=== PATIENT | female | born 1980 | race Caucasian/White ===

== ENCOUNTER 2019-05-21 17:33 | Emergency (ER) | payer OTHER ==
--- NOTE | 2019-05-21 17:38 | PDOC ---
History of Present Illness - General Chief Complaint: Vaginal Sxs Stated Complaint: YEAST INFECTION Time Seen by Provider: 05/21/19 17:37 History Source: Patient Exam Limitations: No Limitations - History of Present Illness Initial Comments: 05/21/19 17:37 Daksha Pat is a 39F with PMH hypothyroidism on Synthroid, NIDDM, presenting with vaginal discomfort. Since last Monday, has had vaginal discomfort and brown malordorous discharge, no bleeding or abdominal pain. Called OBGYN, says symptoms consistent with prior yeast infection, only PO medications tend to work. Made appt to see OBGYN but uncomfortable waiting until , came to ED. Denies burning with urination, but has urinary frequency. PMH NIDDM, has not been taking Metformin since January, has not checked BGM daily since then. Intentional 80lb weight loss since January. Denies fever, chills, chest pain, palpitations, SOB, abd pain, swelling. LMP ended 5 days ago, heavy periods, very regular. One new male sexual partner since December, initially used condoms but decreased use over time. Has had a tubal ligation, no concern for . No history of STDs, has been tested before, would like testing today. Has 3 chidden aged 18, 16, 11. Denies drugs, social alcohol, non-smoker. Past History - Past Medical History Allergies/Adverse Reactions: Allergies Allergy/AdvReac Type Severity Reaction Status Date / Time No Known Allergies Allergy Verified 05/21/19 17:35 Home Medications: Ambulatory Orders Levothyroxine [Synthroid] 100 mcg PO DAILY #15 tablet 04/15/15 Metformin HCl [Glucophage] 1,000 mg PO TID 05/21/19 Nitrofurantoin Macrocrystal [Macrodantin] 100 mg PO BID #14 capsule 05/21/19 Cancer: Yes (h/o cervical, none now) Diabetes: Yes Thyroid Disease: Yes (hypothyroid) - Surgical History Cardiac Surgery: Yes - Reproductive History Cervical CA: Yes (states doesnt have cancer now, had cryotherapy) Tubal Ligation: Yes - Immunization History Td Vaccination: No - Psycho Social/Smoking Cessation Hx Smoking Status: No Smoking History: Never smoked Number of Cigarettes Smoked Daily: 0 Hx Alcohol Use: No Drug/Substance Use Hx: No Substance Use Type: None Review of Systems - Review of Systems Able to Perform ROS?: Yes Constitutional: No: Symptoms Reported HEENTM: No: Symptoms Reported Respiratory: No: Symptoms reported Cardiac (ROS): No: Symptoms Reported ABD/GI: No: Symptoms Reported : Yes: Discharge, Frequency. No: Burning, Dysuria, Flank Pain, Hematuria, Incontinence Musculoskeletal: No: Symptoms Reported Integumentary: No: Symptoms Reported Neurological: No: Symptoms reported Endocrine: No: Symptoms Reported Hematologic/Lymphatic: No: Symptoms Reported All Other Systems: Reviewed and Negative *Physical Exam - Physical Exam General Appearance: Yes: Nourished, Appropriately Dressed. No: Apparent Distress HEENT: positive: EOMI, AVINASH, Normal Voice, Symmetrical, Pharynx Normal, Hearing Grossly Normal. negative: Scleral Icterus (R), Scleral Icterus (L), Pharyngeal Erythema, Tonsillar Exudate, Tonsillar Erythema Neck: positive: Trachea midline, Decreased range of motion. negative: Tender, Supple, Lymphadenopathy (R), Lymphadenopathy (L) Respiratory/Chest: positive: Lungs Clear, Normal Breath Sounds. negative: Chest Tender, Respiratory Distress, Accessory Muscle Use, Crackles, Rales, Rhonchi, Stridor, Wheezing Cardiovascular: positive: Regular Rhythm, Regular Rate. negative: Edema, Murmur Female Pelvic Exam: positive: normal external exam, cervical os closed, normal adnexa, discharge (physiological discharge, no evidence of cottage cheese or yeast, no blood). negative: CMT, lesions, Bartholin mass, vaginal bleeding Gastrointestinal/Abdominal: positive: Normal Bowel Sounds, Flat, Soft. negative : Tender, Organomegaly, Pulsatile Mass, Guarding, Rebound Musculoskeletal: positive: Normal Inspection. negative: CVA Tenderness Extremity: positive: Normal Capillary Refill, Normal Inspection, Normal Range of Motion. negative: Tender, Pelvis Stable Integumentary: positive: Normal Color, Dry, Warm Neurologic: positive: Alert, Normal Mood/Affect, Normal Response Medical Decision Making - Medical Decision Making 05/21/19 21:24 Daksha Pat is a 39F with PMH hypothyroidism on Synthroid, NIDDM, presenting with vaginal discomfort. On exam, patient noted to have no evidence of a yeast infection, no thick or brown discharge noted, only physiological clear white serous fluids with a normal-appearing os for a multiparous female and no CMT or external rashes concerning for GC infection. Patient does not have any systemic symptoms and is well-appearing at this time. Ordering UA/UC with STD testing per patient preference, including HIV, GC with trichomonas, and RPR. Vaginal discomfort likely related to STD vs. UTI. UA is pending at this time. Patient advised that STD testing results will be available in the next week. Signed out to night team Dr. Escalante. Plan to discharge home with OBGYN f/u and ABx if needed for UTI. Discharge - Discharge Information Problems reviewed: Yes Clinical Impression/Diagnosis: Vaginal discharge UTI (urinary tract infection) Qualifiers: Urinary tract infection type: acute cystitis Hematuria presence: without hematuria Qualified Code(s): N30.00 - Acute cystitis without hematuria Condition: Stable Disposition: HOME - Additional Discharge Information Prescriptions: Nitrofurantoin Macrocrystal [Macrodantin] 100 mg PO BID #14 capsule - Follow up/Referral - Patient Discharge Instructions Patient Printed Discharge Instructions: DI for Urinary Tract Infection (UTI), DI for Vaginal Discharge Additional Instructions: Today you were evaluated for vaginal discharge. We performed a examination and did not find any evidence of a yeast infection that needs treatment at this time. Your urine tests show:evidence of urinary tract infection. As discussed, urine culture has been sent. Until that is completed, we will treat you with an antibiotic that is commonly used for urinary tract infections: Macrobid twice a day for 1 week (next dose tomorrow morning). We will let you know if antibiotic needs to be changed after culture is completed. In terms of your STD testing, you will hear about your results if you have an infection in the next week. Please see your primary doctor in the next 3 days for further care, and follow- up with your OBGYN in the next week as scheduled. If you experience fever/chills , nausea, vomiting, abdominal pain, pain with urination, or any other new or concerning symptoms, please return to the emergency room. - Post Discharge Activity
[2019-05-21 18:27] VITALS: BP 131/91; PULSE 63; TEMP 97.5; BMI 29.9
--- NOTE | 2019-05-21 18:50 | PDOC ---
Attending Attestation - Resident Resident Name: Evan Faustin - ED Attending Attestation I have performed the following: I have examined & evaluated the patient, The case was reviewed & discussed with the resident, I agree w/resident's findings & plan - HPI HPI: 05/21/19 18:50 39 YOF h/o DM and hypothyroidism presenting with malodorous brown vaginal discharge x 5 days. +dysuria. +urinary frequency. new sexual partner, no protection. unsure of STD status, would like testing. no ap, n/v/d, fever, cp or sob. 05/21/19 19:33 05/22/19 14:29 - Physicial Exam PE: 05/21/19 18:50 Agree with the resident's HPI and PE as documented in the electronic medical record. NAD, well appearing, EOMI, PERRL, nl conjunctiva, anicteric; neck supple. lungs clear, RRR, abdomen soft nontender. no rebound, guarding. Back nontender. ALARCON x4, no focal neuro deficits. No peripheral edema. normal color for ethnicity , WWP. pelvic exam with resident - i chaperoned the exam normal external genitalia, no discharge. cervix smooth and pink nontender. no adnexal tenderness. physio white discharge 05/21/19 19:36 - Medical Decision Making 05/21/19 18:50 Vital Signs Temp Pulse Resp BP Pulse Ox 97.5 F L 63 20 131/91 100 05/21/19 17:34 05/21/19 17:34 05/21/19 17:34 05/21/19 17:34 05/21/19 17:34 ddx std, hiv, uti, yeast, trich, gc/chlamydia will check hiv/urine testing UA prelim pending, if pos treat with oral abx for uncomp cystitis. hold std tx until return of cultures safe sex practices hiv test in 1 week denies , s/p tubal ligation 05/21/19 19:36 05/21/19 19:37 05/22/19 14:29
[2019-05-21 20:01] LABS: EPITHELIAL CELLS MANY /hpf; URINE TRICHOMONAS FEW
--- NOTE | 2019-05-21 20:25 | PDOC ---
*Physical Exam - Vital Signs Last Vital Signs Temp Pulse Resp BP Pulse Ox 97.5 F L 63 20 131/91 100 05/21/19 17:34 05/21/19 17:34 05/21/19 17:34 05/21/19 17:34 05/21/19 17:34 ED Treatment Course - ADDITIONAL ORDERS Additional order review: Laboratory Results 05/21/19 19:20 Urine Color Yellow Urine Appearance Slightly Urine pH 7.0 Urine Protein Negative Urine Glucose (UA) Negative Urine Ketones Negative Urine Blood Trace-intact Urine Nitrite Negative Urine Bilirubin Negative Urine Urobilinogen 1.0 Ur Leukocyte Esterase 2+ Urine RBC 5-10 Urine WBC 40-60 Ur Transition Epith Cell Many Urine Bacteria Many Urine Trichomonas Few ED Progress Note - Progress Note Progress Note: Care of this patient received from Dr. Bhardwaj. Urinalysis completed: 2+ LE present with 5-10 RBCs/100 WBCs/many epithelial cells but also many bacteria and few trichomonas. Because the patient has some symptoms consistent with UTI, urine culture and sensitivity also sent. Patient will be treated empirically because of her symptoms and presence of significant amount of red blood cells, white blood cells and bacteria (although patient also has many epithelial cells present) Patient will be started on Macrobid 100 mg twice a day for 1 week with first dose given here in the emergency room Chlamydia/gonorrhea cervical culture pending. Patient will be contacted if either of these are positive and treated accordingly. Patient should follow-up with her estate planning director as well as her general medical doctor. She should return to the emergency room if she develops severe abdominal/pelvic pain, fever or vomiting. Discharge - Discharge Information Problems reviewed: Yes Clinical Impression/Diagnosis: Vaginal discharge UTI (urinary tract infection) Qualifiers: Urinary tract infection type: acute cystitis Hematuria presence: without hematuria Qualified Code(s): N30.00 - Acute cystitis without hematuria Condition: Stable Disposition: HOME - Additional Discharge Information Prescriptions: Nitrofurantoin Macrocrystal [Macrodantin] 100 mg PO BID #14 capsule - Follow up/Referral - Patient Discharge Instructions Patient Printed Discharge Instructions: DI for Urinary Tract Infection (UTI), DI for Vaginal Discharge Additional Instructions: Today you were evaluated for vaginal discharge. We performed a examination and did not find any evidence of a yeast infection that needs treatment at this time. Your urine tests show:evidence of urinary tract infection. As discussed, urine culture has been sent. Until that is completed, we will treat you with an antibiotic that is commonly used for urinary tract infections: Macrobid twice a day for 1 week (next dose tomorrow morning). We will let you know if antibiotic needs to be changed after culture is completed. In terms of your STD testing, you will hear about your results if you have an infection in the next week. Please see your primary doctor in the next 3 days for further care, and follow- up with your OBGYN in the next week as scheduled. If you experience fever/chills , nausea, vomiting, abdominal pain, pain with urination, or any other new or concerning symptoms, please return to the emergency room. - Post Discharge Activity
[2019-05-21] MEDS ORDERED: NITROFURANTOIN MACROCRYSTAL 50 MG CAPSULE (FP) PO SCH (20:30)
[2019-05-21] MEDS ORDERED: NITROFURANTOIN MACROCRYSTAL 50 MG CAPSULE (FP) ONE ×2 (20:37→20:38)
== END 2019-05-21 20:44 | disposition home or self-care (01) ==
LOC: FER 17:33
DX: N30.00 Acute cystitis without hematuria (principal); N89.8 Other specified noninflammatory disorders of vagina; E11.9 Type 2 diabetes mellitus without complications; E03.9 Hypothyroidism, unspecified
CPT/HCPCS: 36415; 81003; 81015; 86593; 87086; 87389; 87491; 87591; 87661; 99282-25

== ENCOUNTER 2020-03-21 13:25 | Emergency (ER) | payer OTHER ==
--- OUTSIDE RECORDS SUMMARY | 2020-03-21 13:36 | XMS ---
:1980 Author Organization [facility] Support Name Relationship Address Phone [facility] Unavailable [address] [place] [address] JUSTIN JOHNSON [address] [place] [address] Re-disclosure Warning The records that you are about to access may contain information from federally- assisted alcohol or drug abuse programs. If such information is present, then the following federally mandated warning applies: This information has been disclosed to you from records protected by federal confidentiality rules (42 CFR part 2). The federal rules prohibit you from making any further disclosure of this information unless further disclosure is expressly permitted by the written consent of the person to whom it pertains or as otherwise permitted by 42 CFR part 2. A general authorization for the release of medical or other information is NOT sufficient for this purpose. The Federal rules restrict any use of the information to criminally investigate or prosecute any alcohol or drug abuse patient.The records that you are about to access may contain highly sensitive health information, the redisclosure of which is protected by Article 27-F of the [place] Public Health law. If you continue you may haveaccess to information: Regarding HIV / AIDS; Provided by facilities licensed or operated by the [facility] Office of Mental Health; or Provided by the [facility] Office for People With Developmental Disabilities. If such information is present, then the following [facility] mandated warning applies: This information has been disclosed to you from confidential records which are protected by state law. State law prohibits you from making any further disclosure of this information without the specific written consent of the person to whom it pertains, or as otherwise permitted by law. Any unauthorized further disclosure in violation of state law may result in a fine or snf sentence or both. A general authorization for the release of medical or other information is NOT sufficient authorization for further disclosure. Allergies and Adverse Reactions Type Description Substance Reaction Status Data Source(s ) No Known Allergies No Known Allergies No Known eCW2 ([facility]) No Information No Information No Information eC W2 ([facility]) No Known Allergies No Known Allergies No Known eCW2 ([facility]) Encounters Encounter Providers Location Date Indications Data Source(s ) [facility] 12[facility] [place] [facility] [place] [facility]/04[facility]2019 [facility] ( [facility] 12[facility] [place] [facility] 09[facility]2017 [facility] ( [facility] [place] [facility] 07[facility] ( [facility] 12:[facility] [place] [facility]) Immunizations Vaccine Date Status Description Data Source(s) No Known Immunizations completed eCW2 ([facility]) No Known Immunizations completed eCW2 ([facility]) No Known Immunizations completed eCW2 ([facility]) Medications Medication Brand Start Product Dose Route [facility] Indications Reaction Description Data Name Date Form Instructions Instructions Source(s) Fluconazole Difluc 11/05/ active 1 table t eCW2 150 MG Oral an 2019 ([facility] Tablet 150[facility] 12:00: [facility] [Diflucan] 00 AM - [place] Diflucan [facility]) Metronidazo Metron 11/05/ active 1 table t eCW2 le 500 MG idazol 2019 ([facility] Oral Tablet e 500 12:00: [facility]ren [facility] MG 00 AM - [place] [facility]) Metronidazo Metron 01/04/ active 1 table t eCW2 le 500 MG idazol 2019 ([facility] Oral Tablet e 500 12:00: [facility]ren [facility] MG 00 AM - [place] [facility]) Fluconazole Difluc 01/04/ active 1 table t eCW2 150 MG Oral an 2019 ([facility] Tablet 150[facility] 12:00: [facility] [Diflucan] 00 AM - [place] Diflucan EDT [facility]) Fluconazole Difluc 01/04/ suspend 1 tabl et eCW2 150 MG Oral an 2019 ed ([facility]anned Tablet 150MG 12:00: [facility] [Diflucan] 00 AM - [place] Diflucan EDT [facility]) Metronidazo Metron 01/04/ suspend 1 tabl et eCW2 le 500 MG idazol 2019 ed ([facility]anned Oral Tablet e 500 12:00: [facility]ren [facility] MG 00 AM - [place] EDT [facility]) Unknown complet eCW2 Medications ed ([facility]) Synthroid UNK active eCW2 ([facility]) Synthroid UNK active eCW2 ([facility]) Insurance Providers Payer name Policy type Policy ID Covered Covered green party's Policy P lilly / Coverage green party ID relationship to [facility] [employer] ormation type hern[place] [employer] [place] [id number] [place] [id number] O Problems, Conditions, and Diagnoses Code Display Name Description Problem Type Effective Dates Data Source(s) Unknown Problems Unknown Problems Problem eC W2 ([facility]) Unknown Problems Unknown Problems Problem eC W2 ([facility]) Unknown Problems Unknown Problems Problem eC W2 ([facility]) Surgeries/Procedures Procedure Description Date Indications Data Source(s) Wet [place] 11/06/2019 eCW2 ([facility] 12:[facility]:00 [facility] [place] [facility]) GONORRHEA, ANIRUDH 11/06/2019 eCW2 ([facility] 12:[facility]:00 [facility] [place] [facility]) CHLAMYDIA, ANIRUDH 11/06/2019 eCW2 ([facility] 12:[facility]:00 [facility] [place] [facility]) No Known procedures No Known procedures e CW2 ([facility]) Social History Code Duration Value Status Description Data Source(s ) Smoking Unknown if ever completed Unknown if ever eCW2 ([facility] smoked [facility]) Smoking Unknown if ever completed Unknown if ever eCW2 ([facility]) Smoking Never Smoker completed Never Smoker eCW2 ([facility]e [facility]) Vital Signs ID Date Data Source UNK Name Value Range Interpretation Code Description Data Source(s) Diastolic blood 83 mm[Hg] 83 mm[Hg] eCW2 ([facility]) Systolic blood 122 mm[Hg] 122 mm[Hg] eCW2 ([facility] pressure [facility]) Body mass index 28.24 kg/m2 28.24 kg/m2 eCW2 (P lanned (BMI) [Ratio] [facility]) Body weight 175 [lb_av] 175 [lb_av] eCW2 (Plann ed Measured [facility]) Body height 66 [in_us] 66 [in_us] eCW2 ([facility]) Diastolic blood 81 mm[Hg] 81 mm[Hg] eCW2 ([facility] n[facility] pressure [facility]) Systolic blood 118 mm[Hg] 118 mm[Hg] eCW2 (Plan joe pressure [facility]) Body mass index 28.08 kg/m2 28.08 kg/m2 eCW2 (P lanned (BMI) [Ratio] [facility]) Body weight 174 [lb_av] 174 [lb_av] eCW2 (Plann ed Measured [facility]) Body height 66 [in_us] 66 [in_us] eCW2 ([facility]) Patient Treatment Plan of Care Planned Activity Planned Date Details Description Data Source (s) Metronidazole 500 MG Oral 11/06/2019 12:00:00 eCW2 ([facility] Tablet AM EDT [facility]) Fluconazole 150 MG Oral 11/06/2019 12:00:00 eCW2 ([facility]anned Tablet [Diflucan] AM EDT [facility]) Fluconazole 150 MG Oral 01/04/2019 12:00:00 eCW2 ([facility]anned Tablet [Diflucan] AM EDT [facility]) Metronidazole 500 MG Oral 01/04/2019 12:00:00 eCW2 ([facility]anned Tablet AM EDT [facility])
[2020-03-21 13:48] VITALS: BP 113/73; PULSE 79; TEMP 98.9; BMI 27.6
[2020-03-21] MEDS ORDERED: IBUPROFEN 600 MG TABLET (FP) PO ONE (14:16)
--- NOTE | 2020-03-21 15:09 | PDOC ---
History of Present Illness - General Chief Complaint: Pain Stated Complaint: LEFT UPPER BACK TO BREAST PAIN Time Seen by Provider: 03/21/20 13:29 History Source: Patient Exam Limitations: No Limitations - History of Present Illness Initial Comments: 03/21/20 15:02 CHIEF COMPLAINT: Left-sided chest pain on deep breath x6 days HISTORY OF PRESENT ILLNESS: 40-year-old female with a history of diabetes mellitus, thyroid disease and asthma. Patient was feeling well until last weekend when she started to note some pleuritic left-sided lateral chest pain upon taking a deep breath. The pain is in the axillary region and radiates to the left breast. There is no cough. There is no fever. There are no URI symptoms. The pain is worse to touch. No recent wheezing. REVIEW OF SYSTEMS: No fever or chills No cough No sore throat No runny nose Positive left chest pain, pleuritic No hemoptysis No sputum production No leg swelling or pain No hormone use Status post tubal ligation No history of DVT No history of PE Past History - Medical History Allergies/Adverse Reactions: Allergies Allergy/AdvReac Type Severity Reaction Status Date / Time No Known Allergies Allergy Verified 05/21/19 17:35 Home Medications: Ambulatory Orders Levothyroxine [Synthroid] 100 mcg PO DAILY #15 tablet 04/15/15 Metformin HCl [Glucophage] 1,000 mg PO TID 05/21/19 Asthma: Yes (Uses albuterol as needed) Cancer: Yes (h/o cervical, none now) COPD: No Diabetes: Yes (NIDDM) Thyroid Disease: Yes (hypothyroid) - Surgical History Cardiac Surgery: Yes - Reproductive History Is Patient Now?: No Cervical CA: Yes (states doesnt have cancer now, had cryotherapy) Tubal Ligation: Yes - Immunization History Td Vaccination: No - Psycho-Social/Smoking History Smoking Status: No Smoking History: Never smoked Have you smoked in the past 12 months: No Number of Cigarettes Smoked Daily: 0 'Breaking Loose' booklet given: 05/21/19 - Substance Abuse Hx (Audit-C & DAST Scrn) How often the patient has a drink containing alcohol: Never Score: In Men: 4 or > Positive; In Women: 3 or > Positive: 0 Screen Result (Pos requires Nsg. Audit-10AR): Negative In the last yr the pt used illegal drug/Rx for NonMed reason: No Score: Yes response is considered Positive: 0 Screen Result (Positive result requires Nsg. DAST-10): Negative *Physical Exam - Vital Signs Last Vital Signs Temp Pulse Resp BP Pulse Ox 98.9 F 79 15 113/73 99 03/21/20 13:26 03/21/20 13:26 03/21/20 13:26 03/21/20 13:26 03/21/20 13:26 - Physical Exam 03/21/20 15:10 GENERAL: The patient is awake, alert, and fully oriented, in no acute distress. Appears comfortable, even when taking a deep breath, but states she feels some discomfort in the left side with the deep inspiration HEAD: Normal with no signs of trauma. EYES: Pupils equal, round and reactive to light, extraocular movements intact, sclera anicteric, conjunctiva clear. ENT: Ears normal, nares patent, oropharynx clear without exudates. Moist mucous membranes. NECK: Normal range of motion, supple without lymphadenopathy, JVD, or masses. LUNGS: Breath sounds equal, clear to auscultation bilaterally. No wheezes, and no crackles. HEART: Regular rate and rhythm, normal S1 and S2 without murmur, rub or gallop. ABDOMEN: Soft, nontender, normoactive bowel sounds. No guarding, no rebound. No masses. EXTREMITIES: Normal range of motion, no edema. No clubbing or cyanosis. No cords, erythema, or tenderness. Calves are supple. NEUROLOGICAL: Cranial nerves II through XII grossly intact. Normal speech, normal gait. PSYCH: Normal mood, normal affect. SKIN: Warm, Dry, normal turgor, no rashes or lesions noted. ED Treatment Course - RADIOLOGY Radiology Studies Ordered: Category Date Time Status CHEST PA & LAT [RAD] Stat Radiology 03/21/20 14:17 Taken - Medications Given in the ED: ED Medications Discontinued Medications Generic Name Dose Route Start Last Admin Trade Name Freq PRN Reason Stop Dose Admin Ibuprofen 600 mg 03/21/20 14:16 03/21/20 14:45 Motrin - PO 03/21/20 14:17 600 mg ONCE ONE Administration Medical Decision Making - Medical Decision Making 03/21/20 15:10 40-year-old female presents with pleuritic left chest pain. Head and neck exam is normal with no signs of infection. Lung examination is normal with no signs of wheezing. She has a history of asthma, but air entry is normal. Breast examination is likewise normal with no discharge or masses or tenderness. The pain is reproduced when patient takes a deep breath, but she does appear to take a full normal breath without difficulty. No signs of DVT on leg examination. Impression: Patient is PERC negative, ruling out pulmonary embolism. The clinical history is also not concerning for that diagnosis. No signs of asthma. No signs of pneumonia. Chest x-ray PA and lateral was performed. The lungs appear normal and the heart appears normal. There is no pleural effusion. There is no pneumothorax. Final radiology reading is pending at the time of disposition. Radiology follow-up procedure activated. Plan: Advil as needed. Reassurance. Follow-up with primary care physician. Discharge - Discharge Information Problems reviewed: Yes Clinical Impression/Diagnosis: Pleuritic chest pain Condition: Stable Disposition: HOME - Admission No - Follow up/Referral Referrals: Robby Porter MD [Primary Care Provider] - 1 week - Patient Discharge Instructions Patient Printed Discharge Instructions: DI for Atypical Chest Pain Additional Instructions: Today you were evaluated for chest pain on breathing in the left chest. Your physical examination of the heart and lungs was normal. Your chest x-ray also shows normal heart and lungs. The most likely explanation is muscular pain in the left chest. Take Advil 2 tablets every 6 hours as needed for pain. Follow- up with your primary care physician next week if the pain has not resolved. Return to the emergency department for any severe or progressive symptoms. - Post Discharge Activity
== END 2020-03-21 15:16 | disposition home or self-care (01) ==
LOC: FER 13:25
DX: R07.1 Chest pain on breathing (principal)
CPT/HCPCS: 71046-TC-FY; 99283-25

== ENCOUNTER 2023-06-19 15:21 | Emergency (ER) | payer OTHER ==
[2023-06-19 15:32] VITALS: BP 125/77; PULSE 82; RESP 18; TEMP 98.3; BMI 28.2
[2023-06-19] MEDS ORDERED: ONDANSETRON 4 MG/2 ML VIAL IVPUSH ONE (17:20)
[2023-06-19] MEDS ORDERED: SODIUM CHLORIDE 0.9% 500 ML INFUS.BAG IV ONE (17:20)
[2023-06-19] MEDS ORDERED: ACETAMINOPHEN 1000 MG/100 ML BAG IVPB ONE (17:20)
[2023-06-19] MEDS ORDERED: MECLIZINE HCL 25 MG TABLET (FP) PO ONE (17:20)
[2023-06-19] MEDS ORDERED: MECLIZINE HCL 25 MG TABLET (FP) ONE (18:00)
[2023-06-19] MEDS ORDERED: ACETAMINOPHEN INJECTION 100 ML IVPB ONE (18:00)
[2023-06-19] MEDS ORDERED: ONDANSETRON 4 MG/2 ML VIAL ONE (18:01)
[2023-06-19 18:48] LABS: PH,URINE 8.5 (5.0-8.0); URINE APPEARANCE CLOUDY; URINE BILIRUBIN NEGATIVE (NEGATIVE); URINE COLOR YELLOW; URINE GLUCOSE (UA) NEGATIVE (NEGATIVE); URINE KETONE NEGATIVE (NEGATIVE); URINE LEUK ESTERASE NEGATIVE (NEGATIVE); URINE NITRITE NEGATIVE (NEGATIVE); URINE PROTEIN NEGATIVE (NEGATIVE); URINE UROBILINOGEN 0.2 mg/dL (0.2-1.0)
[2023-06-19 18:50] LABS: BASO % 0.8 % (0-2.0); EOS % 1.2 % (0-4.5); HEMOGLOBIN 13.6 GM/dL (10.7-15.3); LYMPH % 17.6 % (8-40); MCH 30.4 pg (25.7-33.7); MCHC 33.9 g/dl (32.0-36.0); MEAN CELL VOLUME 89.6 fl (80-96); MEAN PLT VOLUME 7.6 fl (7.5-11.1); MONO % 5.7 % (3.8-10.2); NEUT % 74.7 % (42.8-82.8); PLATELET COUNT 322 10^3/uL (134-434); RBC 4.46 M/mm3 (3.60-5.2); RDW 13.3 % (11.6-15.6); WHITE BLOOD COUNT 6.5 K/mm3 (4.0-10.0)
[2023-06-19 19:01] LABS: POTASSIUM 4.2 mmol/L (3.5-5.1)
[2023-06-19 19:03] LABS: CALCIUM 9.6 mg/dL (8.5-10.1)
[2023-06-19 19:04] LABS: ALBUMIN 4.2 g/dl (3.4-5.0); BLOOD UREA NITROGEN 9.6 mg/dL (7-18)
[2023-06-19 19:07] LABS: CREATININE 0.6 mg/dL (0.55-1.3)
[2023-06-19 19:08] LABS: BILIRUBIN,TOTAL 0.4 mg/dL (0.2-1); TOT PROT 8.4 g/dl (6.4-8.2)
[2023-06-19] MEDS ORDERED: SODIUM CHLORIDE 0.9% 1000 ML INFUS.BAG IV ONE (19:20)
[2023-06-19 19:28] LABS: HCG,QUALITATIVE URINE Negative
[2023-06-19] MEDS ORDERED: METOCLOPRAMIDE HCL INJECTION 10 MG/2 ML VIAL IVPB ONE (21:36)
[2023-06-19] MEDS ORDERED: METOCLOPRAMIDE HCL INJECTION 10 MG/2 ML VIAL ONE (23:09)
== END 2023-06-20 01:00 | disposition left against medical advice (07) ==
LOC: JER 15:21
PROC: 3E033NZ Introduction of Analgesics, Hypnotics, Sedatives into Peripheral Vein, Percutaneous Approach (ICD-10-PCS; principal; 2023-06-19)
PROC: 3E033GC Introduction of Other Therapeutic Substance into Peripheral Vein, Percutaneous Approach (ICD-10-PCS; 2023-06-19)
DX: R53.1 Weakness (principal); R51.9 Headache, unspecified; R11.2 Nausea with vomiting, unspecified; R42 Dizziness and giddiness; R19.7 Diarrhea, unspecified; R53.83 Other fatigue; Z20.822 Contact with and (suspected) exposure to COVID-19
CPT/HCPCS: 0241U-QW; 36415; 70450-TC; 80053; 81003; 82962; 84439; 84443; 84484; 84703; 85025; 87086; 93005; 93010; 99285-25